=== PATIENT | male | born 1970 | race Caucasian/White ===

== ENCOUNTER 2019-07-12 13:12 | Emergency (ER) | payer MEDICAID ==
[~2019-07-12] VITALS: Ht 185.4 cm; Wt 79.0 kg
[2019-07-12 13:20] VITALS: BP 121/70
[2019-07-12 15:19] LABS: BASOPHILS # (AUTO) 0.03 x10^3/uL (0-0.1); BASOPHILS % (AUTO) 0 % (0-1); EOSINOPHILS # (AUTO) 0.17 x10^3/uL (0-0.4); EOSINOPHILS % (AUTO) 2 % (1-7); LYMPHOCYTES # (AUTO) 1.04 x10^3/uL (1-3.4); LYMPHOCYTES % (AUTO) 14 % (22-44); MD NO; MEAN CORPUSCULAR HEMOGLOBIN 29.8 pg (27.5-34.5); MEAN CORPUSCULAR HGB CONC 33.5 g/dL (33.2-36.2); MEAN CORPUSCULAR VOLUME 89.1 fL (81-97); MONOCYTES # (AUTO) 0.55 x10^3/uL (0.2-0.8); MONOCYTES % (AUTO) 7 % (2-9); NEUTROPHILS # (AUTO) 5.88 x10^3/uL (1.8-6.8); NEUTROPHILS % (AUTO) 77 % (42-75); PLATELET COUNT 242 x10^3/uL (130-400); RED BLOOD COUNT 4.76 x10^6/uL (4.38-5.82); RED CELL DISTRIBUTION WIDTH 13.4 % (9.4-14.8)
[2019-07-12 15:27] LABS: ALBUMIN 3.6 g/dL (3.4-5.0); ANION GAP 7 mmol/L (5-15); CALCIUM 8.7 mg/dL (8.5-10.1); CHLORIDE 109 mmol/L (98-107); CREATININE 1.05 mg/dL (0.7-1.3)
== END 2019-07-12 16:56 | disposition home or self-care (01) ==
LOC: ED 15:13
DX: B34.9 Viral infection, unspecified (principal); R06.00 Dyspnea, unspecified; R04.0 Epistaxis
CPT/HCPCS: 36415; 71045; 80048; 82040; 85025; 93005; 99284

== ENCOUNTER 2020-06-08 09:02 | Emergency (ER) | payer MEDICAID ==
[~2020-06-08] VITALS: Ht 182.9 cm; Wt 82.3 kg
[2020-06-08 09:17] VITALS: BP 121/74
[2020-06-08] MEDS ORDERED: MUPIROCIN OINT 2%, 22GM TP SCH (10:00)
[2020-06-08] MEDS ORDERED: CLINDAMYCIN 150 MG CAPSULE PO ONE (10:00)
[2020-06-08] MEDS ORDERED: DIPH,PERTUSS(ACELL),TET VAC/PF 0.5 ML IM-VACC ONE ×2 (10:00)
== END 2020-06-08 10:18 | disposition home or self-care (01) ==
LOC: ED 10:15
DX: L03.211 Cellulitis of face (principal); L03.221 Cellulitis of neck; L01.01 Non-bullous impetigo; Z87.891 Personal history of nicotine dependence
CPT/HCPCS: 90471; 90715; 99283

== ENCOUNTER 2020-06-12 13:19 | Emergency (ER) | payer MEDICAID ==
[~2020-06-12] VITALS: Ht 182.9 cm; Wt 88.5 kg
[2020-06-12 13:21] VITALS: BP 123/98
--- NOTE | 2020-06-12 14:05 | NUR ---
MED REQUEST TO PHARMACY.
--- NOTE | 2020-06-12 14:39 | NUR ---
BACTROBAN APPLIED, REMAINDER OF TUBE PROVIDED TO PT ON DISCHARGE.
[2020-06-12] MEDS ORDERED: MUPIROCIN OINT 2%, 22GM TP SCH (16:00)
== END 2020-06-12 14:39 | disposition home or self-care (01) ==
LOC: ED 14:09
DX: L01.01 Non-bullous impetigo (principal); G89.29 Other chronic pain; F17.200 Nicotine dependence, unspecified, uncomplicated
CPT/HCPCS: 99283

== ENCOUNTER 2020-08-13 19:53 | Emergency (ER) | payer MEDICAID ==
[~2020-08-13] VITALS: Ht 185.4 cm; Wt 86.6 kg
--- NOTE | 2020-08-13 20:07 | NUR ---
assessment made. chart up for MD to see. had a large bowel movement 1 time and states it was dark color, denies abdominal pain at this time.
--- NOTE | 2020-08-13 20:36 | NUR ---
report to EDWARD Singer
[2020-08-13 21:06] LABS: BASOPHILS % (AUTO) 1 % (0-1); EOSINOPHILS % (AUTO) 4 % (1-7); LYMPHOCYTES % (AUTO) 35 % (22-44); MD NO; MEAN CORPUSCULAR HEMOGLOBIN 29.7 pg (27.5-34.5); MEAN CORPUSCULAR HGB CONC 34.4 g/dL (33.2-36.2); MEAN PLATELET VOLUME 7.7 fL (7.4-10.4); MONOCYTES % (AUTO) 8 % (2-9); NEUTROPHILS % (AUTO) 52 % (42-75); PLATELET COUNT 224 x10^3/uL (130-400); RED CELL DISTRIBUTION WIDTH 12.9 % (9.4-14.8)
[2020-08-13 21:07] LABS: ALANINE AMINOTRANSFERASE 29 U/L (12-78); ALBUMIN 3.6 g/dL (3.4-5.0); ANION GAP 7 mmol/L (5-15); CALCIUM 8.7 mg/dL (8.5-10.1); CHLORIDE 110 mmol/L (98-107); CREATININE 1.04 mg/dL (0.7-1.3)
[2020-08-13 21:09] LABS: ALKALINE PHOSPHATASE 93 U/L (45-117); BILIRUBIN,TOTAL 0.2 mg/dL (0.2-1.0); TOTAL PROTEIN 7.1 g/dL (6.4-8.2)
[2020-08-13 22:08] VITALS: BP 115/66
== END 2020-08-13 22:10 | disposition home or self-care (01) ==
LOC: ED 20:37
DX: R10.84 Generalized abdominal pain (principal); R00.0 Tachycardia, unspecified; F17.210 Nicotine dependence, cigarettes, uncomplicated; G89.29 Other chronic pain
CPT/HCPCS: 36415; 80053; 85025; 99283; 99406

== ENCOUNTER 2020-08-15 09:02 | Emergency (ER) | payer MEDICAID ==
[~2020-08-15] VITALS: Ht 182.9 cm; Wt 89.0 kg
--- NOTE | 2020-08-15 09:25 | NUR ---
PATIENT WALKED BACK FROM TRIAGE WITH CHIEF C/O RASH. PATIENT REPORTS RASH STARTED 36 HOURS AGO ON CHEST, RASH HAS NOW SPREAD TO BACK, ABDOMEN AND ARMS. PATIENT DENIES RASH ON LOWER EXTREMITIES. PATIENT DENIES FEVER. NADN, CALL LIGHT WITHIN REACH.
--- NOTE | 2020-08-15 09:46 | NUR ---
REPORT GIVEN TO EDWARD HOWELL FOR TRANSFER OF PATIENT CARE.
[2020-08-15] MEDS ORDERED: FAMOTIDINE 20 MG TABLET ONE (09:49)
[2020-08-15] MEDS ORDERED: DEXAMETHASONE 4 MG TABLET ONE (09:49)
[2020-08-15 09:54] VITALS: BP 121/73
--- NOTE | 2020-08-15 09:55 | NUR ---
REPORT RECIVED. ADMIN MEDS
[2020-08-15] MEDS ORDERED: DEXAMETHASONE 4 MG TABLET PO ONE (10:00)
[2020-08-15] MEDS ORDERED: FAMOTIDINE 20 MG TABLET PO ONE (10:00)
== END 2020-08-15 10:22 | disposition home or self-care (01) ==
LOC: ED 09:48
DX: G89.29 Other chronic pain (principal); L20.9 Atopic dermatitis, unspecified; F17.210 Nicotine dependence, cigarettes, uncomplicated
CPT/HCPCS: 99284; 99406; Q0177

== ENCOUNTER 2020-08-17 00:52 | Emergency (ER) | payer MEDICAID ==
[~2020-08-17] VITALS: Ht 182.9 cm; Wt 86.7 kg
--- NOTE | 2020-08-17 01:20 | NUR ---
patient in NAD. states he has had an ongoing rash that has been worsening/spreading. he pulled out a napkin that had debris on it and stated "i itched myself and this is what came off of my skin." there was a bug on the napkin. Dr. Macedo notified and in to see patient and states this is a bed bug.
--- NOTE | 2020-08-17 02:38 | NUR ---
discharge instructions reviewed with patient. no questions at this time. in NAD. all belongings with patient on dc. steady gait to lobby.
[2020-08-17 02:45] VITALS: BP 146/68
== END 2020-08-17 02:48 | disposition home or self-care (01) ==
LOC: ED 01:12
DX: S30.860A Insect bite (nonvenomous) of lower back and pelvis, initial encounter (principal); L29.9 Pruritus, unspecified; F17.210 Nicotine dependence, cigarettes, uncomplicated; W57.XXXA Bitten or stung by nonvenomous insect and other nonvenomous arthropods, initial encounter; Y93.89 Activity, other specified; Y92.89 Other specified places as the place of occurrence of the external cause; Y99.8 Other external cause status
CPT/HCPCS: 99283; 99406; Q0177